=== PATIENT | male | born 1960 ===

== ENCOUNTER 2017-05-12 02:47 | Outpatient (CLI) | payer BC | END 2017-05-12 23:59 | disposition home or self-care (01) | LOC: DIABETIC 02:47 | PROVIDERS: ATTEND Family Medicine | DX: E78.5 Hyperlipidemia, unspecified (principal); E78.1 Pure hyperglyceridemia; I10 Essential (primary) hypertension; R73.02 Impaired glucose tolerance (oral) | CPT/HCPCS: G0108 ==